=== PATIENT | female | born 1975 | race American Indian/Alaskan Native ===

== ENCOUNTER 2017-01-03 15:31 | Emergency (ER) | payer SELFPAY ==
[2017-01-04 00:34] LABS: Hematocrit 36.5 % (30.3-42.9); Hemoglobin 12.3 gm/dl (10.1-14.3); Mean Corpuscular HGB Conc 34 % (30-34); Mean Corpuscular Hemoglobin 28 pg (28-32); Mean Corpuscular Volume 82 fl (79-97); Platelet Count 343 K/mm3 (140-440); Red Blood Count 4.43 M/mm3 (3.65-5.03); Red Cell Distribution Width 15.7 % (13.2-15.2)
[2017-01-04 00:45] LABS: INR 1.07 (0.87-1.13)
--- NOTE | 2017-01-04 00:45 | Emergency Department Report ---
ED General Adult HPI - General Chief complaint: Extremity Injury, Lower Stated complaint: FEET SWOLLEN/LIGHTHEADED Time Seen by Provider: 01/04/17 00:37 Source: patient, RN notes reviewed Mode of arrival: Ambulatory Limitations: No Limitations - History of Present Illness Initial comments: This is a 41-year-old female. She is previously unknown to me. She has a history of hypertension. Her primary care doctor is at [facility]. The patient receives to both [facility] for control. The patient presents to the ER with painless bilateral lower extremity swelling and edema for the past 2 or 3 days. It is constant. It has no exacerbating or relieving factors. There is no chest pain or shortness of breath. Patient reports a recent trip to [place], for multiple stops for gas and the bathroom. There is no hematemesis of bright red blood per rectum. She reports that she is not . -: Gradual Location: left, right, lower extremity Consistency: constant Improves with: none Worsens with: none Associated Symptoms: denies other symptoms - Related Data Previous Rx's Medication Instructions Recorded Last Taken Type Magnesium Oxide 400 mg PO QDAY #10 tablet 01/04/17 Unknown Rx Potassium Chloride 20 meq PO QDAY #10 tablet.er 01/04/17 Unknown Rx Allergies Allergy/AdvReac Type Severity Reaction Status Date / Time No Known Allergies Allergy Unverified 01/03/17 17:29 ED Review of Systems ROS: Stated complaint: FEET SWOLLEN/LIGHTHEADED Other details as noted in HPI Constitutional: denies: fever, malaise Eyes: denies: vision change ENT: denies: epistaxis Cardiovascular: denies: chest pain Gastrointestinal: denies: abdominal pain Genitourinary: as per HPI Musculoskeletal: as per HPI Skin: as per HPI Neurological: denies: headache, weakness Psychiatric: as per HPI ED Past Medical Hx - Past Medical History Hx Hypertension: Yes - Surgical History Past Surgical History?: No - Social History Smoking Status: Never Smoker Substance Use Type: None - Medications Home Medications: Home Medications Medication Instructions Recorded Confirmed Last Taken Type Magnesium Oxide 400 mg PO QDAY #10 tablet 01/04/17 Unknown Rx Potassium Chloride 20 meq PO QDAY #10 tablet.er 01/04/17 Unknown Rx ED Physical Exam - General Limitations: No Limitations General appearance: alert, in no apparent distress - Head Head exam: Present: atraumatic, normocephalic - Eye Eye exam: Present: normal appearance, EOMI. Absent: nystagmus - ENT ENT exam: Present: normal exam, normal orophraynx, mucous membranes moist, normal external ear exam - Neck Neck exam: Present: normal inspection, full ROM. Absent: tenderness, meningismus - Respiratory Respiratory exam: Present: normal lung sounds bilaterally. Absent: respiratory distress, wheezes, rales, rhonchi, stridor, chest wall tenderness, accessory muscle use, decreased breath sounds, prolonged expiratory - Cardiovascular Cardiovascular Exam: Present: regular rate, normal rhythm, normal heart sounds. Absent: bradycardia, tachycardia, irregular rhythm, systolic murmur, diastolic murmur, rubs, gallop - GI/Abdominal GI/Abdominal exam: Present: soft, normal bowel sounds. Absent: distended, tenderness, guarding, rebound, rigid, pulsatile mass - Extremities Exam Extremities exam: Present: normal inspection, full ROM, normal capillary refill , pedal edema, other (there is 1+ pitting edema in the bilateral feet and distal ankles. The compartments are soft. 2+ pulses are noted in 4 extremities. There is no redness, pus or streaking. There is no palpable cord. There is a negative Homans sign.). Absent: calf tenderness - Back Exam Back exam: Present: normal inspection, full ROM. Absent: tenderness, CVA tenderness (R), CVA tenderness (L), muscle spasm, paraspinal tenderness, vertebral tenderness - Neurological Exam Neurological exam: Present: alert, oriented X3, normal gait, other (Extraocular movements intact. Tongue midline. No facial droop. Facial sensation intact to light touch in the V1, V2, V3 distribution bilaterally. 5 and 5 strength in 4 extremities.. Sensation is intact to light touch in 4 extremities.). Absent : motor sensory deficit - Psychiatric Psychiatric exam: Present: normal affect, normal mood - Skin Skin exam: Present: warm, dry, intact, normal color. Absent: rash ED Course Vital Signs 01/03/17 01/04/17 17:30 01:02 Temperature 98 F 98.2 F Pulse Rate 97 H 76 Respiratory 20 20 Rate Blood Pressure 139/93 Blood Pressure 137/85 [Left] O2 Sat by Pulse 100 100 Oximetry - Reevaluation(s) Reevaluation #1: 01/04/17 01:38 reassessed. Vital signs stable. Laboratory studies unremarkable with the exception of hypokalemia. Patient will be discharged with potassium and magnesium repletion. She will be instructed to follow-up the primary care doctor. Return precautions are reviewed reviewed. ED Medical Decision Making - Lab Data Result diagrams: 01/04/17 00:20 01/04/17 00:20 Vital Signs 01/03/17 17:30 Temperature 98 F Pulse Rate 97 H Respiratory 20 Rate Blood Pressure 139/93 O2 Sat by Pulse 100 Oximetry Lab Results 01/04/17 01/04/17 01/04/17 Range/Units 00:20 00:20 00:20 WBC 8.0 (4.5-11.0) K/mm3 RBC 4.43 (3.65-5.03) M/mm3 Hgb 12.3 (10.1-14.3) gm/dl Hct 36.5 (30.3-42.9) % MCV 82 (79-97) fl MCH 28 (28-32) pg MCHC 34 (30-34) % RDW 15.7 H (13.2-15.2) % Plt Count 343 (140-440) K/mm3 PT 13.8 (12.2-14.9) Sec. INR 1.07 (0.87-1.13) NT-Pro-B Natriuret Pep 6.00 (0-450) pg/mL HCG, Quant (0-4) mIU/mL 01/04/17 Range/Units 00:20 WBC (4.5-11.0) K/mm3 RBC (3.65-5.03) M/mm3 Hgb (10.1-14.3) gm/dl Hct (30.3-42.9) % MCV (79-97) fl MCH (28-32) pg MCHC (30-34) % RDW (13.2-15.2) % Plt Count (140-440) K/mm3 PT (12.2-14.9) Sec. INR (0.87-1.13) NT-Pro-B Natriuret Pep (0-450) pg/mL HCG, Quant < 2 (0-4) mIU/mL - Radiology Data Radiology results: image reviewed interpreted by me: X-ray of the chest is negative for acute disease - Medical Decision Making Differential diagnosis: Venous insufficiency, dependent edema, renal insufficiency, hepatic insufficiency, CHF, DVT Assessment and plan: 81-year-old female with painless minimal bilateral lower extremity swelling, most likely is venous insufficiency. Laboratory studies ordered to assess hepatic and renal function, clinically does not appear to be CHF there is no JVD, no crackles or rales, she is not hypoxic, and a chest x- ray is negative. Patient low risk by well's criteria, highly doubt DVT, patient will be ordered for an outpatient DVT study, as there is no vascular lab in house who can perform the DVT study at this time. I will withhold systemic anticoagulation as I believe the risks outweigh the benefits in this low risk patient. Critical care attestation.: If time is entered above; I have spent that time in minutes in the direct care of this critically ill patient, excluding procedure time. ED Disposition Clinical Impression: Lower extremity edema, Hypokalemia Disposition: TO HOME OR SELFCARE Is pt being admited?: No Does the pt Need Aspirin: No Condition: Stable Instructions: Leg Edema (ED) Additional Instructions: Contact the ultrasound department at [phone] after 8 AM to follow up for outpatient bilateral lower extremity ultrasound. It is unlikely that you have a blood clot in the legs, but it is important to follow-up for this test. Continue her current outpatient medications. Follow up with the primary care doctor or vascular surgeon within the next month for the lower extremity swelling and edema. 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 This can be fixed with compression stockings, and not steady for prolonged periods of time. Return to the ER right away with new pain, worsened pain, migration of pain, fevers or chills, chest pain or shortness of breath, confusion, inability to tolerate liquid feeds. Make certain to bring the order requisition form with you when returning for your outpatient lower extremity ultrasound. Prescriptions: Magnesium Oxide 400 mg PO QDAY #10 tablet Potassium Chloride 20 meq PO QDAY #10 tablet.er Referrals: FARHAN BARFIELD MD [Primary Care Provider] - 3-5 Days FELTON HUSTON MD [Staff Physician] - 3-5 Days SARTHAK WASHINGTON MD [Staff Physician] - 3-5 Days
[2017-01-04 01:00] LABS: Alanine Aminotransferase 15 units/L (7-56); Albumin 4.1 g/dL (3.9-5); Albumin/Globulin Ratio 1.1 %; Alkaline Phosphatase 69 units/L (35-129); Anion Gap 17 mmol/L; Blood Urea Nitrogen 9 mg/dL (7-17); Calcium 9.8 mg/dL (8.4-10.2); Carbon Dioxide 28 mmol/L (22-30); Chloride 96.9 mmol/L (98-107); Glucose 93 mg/dL (65-100); Sodium 139 mmol/L (137-145); Total Protein 7.8 g/dL (6.3-8.2)
[2017-01-04 01:03] VITALS: BP 137/85
[2017-01-04] MEDS ORDERED: K-DUR PO ONE (01:38)
[2017-01-04] MEDS ORDERED: MAG-OX PO ONE (01:38)
--- NOTE | 2017-01-04 09:51 | XRay Report ---
AP CHEST: HISTORY: Lower extremity edema There is poor inspiration. AP view of the chest demonstrates a normal mediastinal and cardiac contour with clear lungs and normal bony and soft tissue structures. IMPRESSION: Unremarkable AP chest.
== END 2017-01-04 02:40 | disposition home or self-care (01) ==
LOC: ED 15:31
DX: R22.43 Localized swelling, mass and lump, lower limb, bilateral (principal); E87.6 Hypokalemia; I10 Essential (primary) hypertension
CPT/HCPCS: 36415; 71010; 80053; 83880; 84702; 85027; 85610

== ENCOUNTER 2020-03-08 14:07 | Emergency (ER) | payer SELFPAY ==
[2020-03-08 15:36] VITALS: BP 171/89
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
== END 2020-03-08 18:36 | disposition home or self-care (01) ==
LOC: ED 14:07
DX: M79.10 Myalgia, unspecified site (principal); V49.49XA Driver injured in collision with other motor vehicles in traffic accident, initial encounter; Y92.410 Unspecified street and highway as the place of occurrence of the external cause; Y93.89 Activity, other specified; Y99.8 Other external cause status
CPT/HCPCS: 99282